=== PATIENT | female | born 1930 | race Caucasian/White ===

== ENCOUNTER 2021-05-08 12:10 | Emergency (ER) | payer MEDICARE, OTHER ==
[2021-05-08] MEDS ORDERED: Lidocaine 1% w/Epinephrine 1:100K 20 ML VIAL ONE (12:45)
== END 2021-05-08 15:23 | disposition home or self-care (01) ==
LOC: CSHERS 12:10
DX: S01.81XA Laceration without foreign body of other part of head, initial encounter (principal); S05.32XA Ocular laceration without prolapse or loss of intraocular tissue, left eye, initial encounter; S80.02XA Contusion of left knee, initial encounter; I48.91 Unspecified atrial fibrillation; E78.5 Hyperlipidemia, unspecified; I10 Essential (primary) hypertension; W19.XXXA Unspecified fall, initial encounter
CPT/HCPCS: 12013; 70450; 70486; 72125

== ENCOUNTER 2021-05-19 10:45 | Inpatient (IN) | payer OTHER, MEDICARE ==
[2021-05-19] MEDS ORDERED: Cefepime 1 GM VIAL ONE (12:17)
[2021-05-19 12:20] LABS: #Basophils 0.1 10x3/uL (0.0-0.2); #Eosinphils 0.1 10x3/uL (0.0-0.5); #Monocytes 1.3 10x3/uL (0.0-1.1); #Neutrophils 10.7 10x3/uL (1.5-8.4); %Basophils 0.8 % (0.0-2.0); %Eosinophils 0.9 % (0.0-6.0); %Lymphocytes 7.8 % (18.0-47.0); %Monocytes 9.5 % (0.0-10.0); %Neutrophils 80.4 % (40.0-75.0); Hemoglobin 10.5 g/dL (12.0-15.5); Mean Corpuscular HGB CONC 31.5 g/dL (32.0-36.0); Mean Corpuscular Hemoglobin 31.8 pg (27.0-33.0); Mean Corpuscular Volume 100.9 fl (81.6-98.3); Mean Platelet Volume 10.2 fl (7.4-10.4); Platelet Count 347 10x3/uL (150-450); White Blood Cell (WBC) Count 13.3 10x3/uL (3.5-10.5)
[2021-05-19 12:24] LABS: Bilirubin Neg (Negative); Blood, Urine 10 (Negative); Clarity Clear (Clear); Glucose, Urine (Dipstick) Normal (Negative); Ketone, Urine Negative (Negative); Leukocyte Negative (Negative); Nitrite Negative (Negative); Protein, Urine (Dipstick) 15 mg/dl (Neg-Trace); Specific Gravity, Urine 1.015 (1.002-1.036)
[2021-05-19 12:37] LABS: Bacteria/HPF Rare-Few HPF (None Seen); Mucous/LPF 1+ LPF (<2+); Squamous Epithelial 0-3 HPF (0-3); WBC/HPF 0-3 HPF (0-3)
[2021-05-19 12:37] LABS: ALT (SGPT) 18 U/L (8-55); AST (SGOT) 29 U/L (5-34); Albumin 3.7 g/dL (3.4-4.8); Alkaline Phosphatase 140 U/L (40-110); Anion Gap 18 mmol/L (10-20); BUN (Urea Nitrogen) 29 mg/dL (9.8-20.1); Bilirubin, Total 1.7 mg/dL (0.2-1.2); Calc. Creatinine Clearance 0 mL/min (70-130); Calcium 9.1 mg/dL (7.8-10.44); Carbon Dioxide 21 mmol/L (23-31); Chloride 104 mmol/L (98-107); Globulin 3.6 g/dL (2.4-3.5); Glucose 116 mg/dL (83-110); Potassium 4.5 mmol/L (3.5-5.1); Protein, Total 7.3 g/dL (5.8-8.1); Sodium 138 mmol/L (136-145)
[2021-05-19 13:53] LABS: SARS-CoV-2 NAA Rapid Test Not Detected (NotDetected)
[2021-05-19] MEDS ORDERED: HYDROcodone/Acetaminophen 5/325 mg Tablet PO PRN (14:11)
[2021-05-19] MEDS ORDERED: Ondansetron PF 4 MG/2 ML Vial IVP PRN (14:11)
[2021-05-19] MEDS ORDERED: traMADol HCl 50 MG TAB PO PRN (14:35)
[2021-05-19] MEDS ORDERED: Ventolin HFA Inhaler 60 PUFF INHALER INH PRN (15:09)
[2021-05-19 16:28] VITALS: BMI 34.1
[2021-05-19] MEDS: Sodium Chloride 0.9% 1,000 ML IV SCH (17:28)
[2021-05-19] MEDS ORDERED: Lidocaine 1% PF 10 ML AMP FS SCH (18:15)
[2021-05-19] MEDS: Famotidine 20 MG TAB PO SCH (20:16)
[2021-05-19] MEDS: Atorvastatin Calcium 10 MG TAB PO SCH (20:16)
[2021-05-19] MEDS: Atenolol 25 MG TAB PO SCH (20:16)
[2021-05-19] MEDS: Escitalopram Oxalate 10 mg Tablet PO SCH (20:17)
[2021-05-19] MEDS: Apixaban 5 MG TAB PO SCH (20:17)
[2021-05-20] MEDS: Acetaminophen 325 MG TAB PO PRN (02:17)
[2021-05-20 04:17] LABS: #Basophils 0.1 10x3/uL (0.0-0.2); #Eosinphils 0.2 10x3/uL (0.0-0.5); #Monocytes 0.9 10x3/uL (0.0-1.1); #Neutrophils 5.8 10x3/uL (1.5-8.4); %Basophils 1.1 % (0.0-2.0); %Eosinophils 2.6 % (0.0-6.0); %Lymphocytes 14.3 % (18.0-47.0); %Monocytes 10.8 % (0.0-10.0); %Neutrophils 70.8 % (40.0-75.0); Mean Corpuscular HGB CONC 32.5 g/dL (32.0-36.0); Mean Corpuscular Hemoglobin 32.3 pg (27.0-33.0); Mean Corpuscular Volume 99.3 fl (81.6-98.3); Mean Platelet Volume 9.8 fl (7.4-10.4); Platelet Count 262 10x3/uL (150-450); RBC Distribution Width 14.3 % (11.5-14.5); Red Blood Cell (RBC) Count 2.79 10x6/uL (3.90-5.03); White Blood Cell (WBC) Count 8.1 10x3/uL (3.5-10.5)
[2021-05-20 04:31] LABS: Anion Gap 11 mmol/L (10-20); BUN (Urea Nitrogen) 28 mg/dL (9.8-20.1); Calc. Creatinine Clearance 52 mL/min (70-130); Calcium 8.1 mg/dL (7.8-10.44); Carbon Dioxide 22 mmol/L (23-31); Chloride 110 mmol/L (98-107); Glucose 108 mg/dL (83-110); Sodium 139 mmol/L (136-145)
[2021-05-20] MEDS: Sodium Chloride 0.9% 1,000 ML IV SCH ×2 (05:52→06:24)
[2021-05-20] MEDS: Amiodarone 200 MG TAB PO SCH (08:18)
[2021-05-20] MEDS: Apixaban 5 MG TAB PO SCH ×2 (08:19→20:21)
[2021-05-20] MEDS: Famotidine 20 MG TAB PO SCH (08:19)
[2021-05-20] MEDS: Furosemide 20 MG TAB PO SCH (08:19)
[2021-05-20] MEDS ORDERED: Methocarbamol 500 MG TAB PO SCH (11:45)
[2021-05-20] MEDS: Atorvastatin Calcium 10 MG TAB PO SCH (20:21)
[2021-05-20] MEDS: Escitalopram Oxalate 10 mg Tablet PO SCH (20:21)
[2021-05-20] MEDS: Atenolol 25 MG TAB PO SCH (20:21)
[2021-05-21] MEDS: Amiodarone 200 MG TAB PO SCH (09:47)
[2021-05-21] MEDS: Apixaban 5 MG TAB PO SCH ×2 (09:47→21:22)
[2021-05-21 09:48] LABS: #Basophils 0.1 10x3/uL (0.0-0.2); #Eosinphils 0.2 10x3/uL (0.0-0.5); #Monocytes 0.9 10x3/uL (0.0-1.1); #Neutrophils 8.4 10x3/uL (1.5-8.4); %Basophils 0.8 % (0.0-2.0); %Eosinophils 1.5 % (0.0-6.0); %Lymphocytes 9.4 % (18.0-47.0); %Monocytes 8.6 % (0.0-10.0); %Neutrophils 79.3 % (40.0-75.0); Hemoglobin 9.5 g/dL (12.0-15.5); Mean Corpuscular HGB CONC 32.1 g/dL (32.0-36.0); Mean Corpuscular Hemoglobin 32.5 pg (27.0-33.0); Mean Corpuscular Volume 101.4 fl (81.6-98.3); Mean Platelet Volume 9.7 fl (7.4-10.4); Platelet Count 271 10x3/uL (150-450); RBC Distribution Width 14.3 % (11.5-14.5); Red Blood Cell (RBC) Count 2.92 10x6/uL (3.90-5.03); White Blood Cell (WBC) Count 10.6 10x3/uL (3.5-10.5)
[2021-05-21] MEDS: Famotidine 20 MG TAB PO SCH (09:49)
[2021-05-21] MEDS: Furosemide 20 MG TAB PO SCH (09:49)
[2021-05-21 10:09] LABS: Anion Gap 13 mmol/L (10-20); BUN (Urea Nitrogen) 24 mg/dL (9.8-20.1); Calc. Creatinine Clearance 54 mL/min (70-130); Calcium 8.6 mg/dL (7.8-10.44); Carbon Dioxide 20 mmol/L (23-31); Chloride 110 mmol/L (98-107); Glucose 148 mg/dL (83-110); Potassium 4.1 mmol/L (3.5-5.1); Sodium 139 mmol/L (136-145)
[2021-05-21] MEDS: Methocarbamol 500 MG TAB PO PRN (15:37)
[2021-05-21] MEDS: Atenolol 25 MG TAB PO SCH (21:21)
[2021-05-21] MEDS: Escitalopram Oxalate 10 mg Tablet PO SCH (21:21)
[2021-05-21] MEDS: Atorvastatin Calcium 10 MG TAB PO SCH (21:22)
[2021-05-22 05:42] LABS: Anion Gap 12 mmol/L (10-20); BUN (Urea Nitrogen) 22 mg/dL (9.8-20.1); Calc. Creatinine Clearance 55 mL/min (70-130); Calcium 8.5 mg/dL (7.8-10.44); Carbon Dioxide 23 mmol/L (23-31); Chloride 108 mmol/L (98-107); Glucose 110 mg/dL (83-110); Potassium 3.9 mmol/L (3.5-5.1); Sodium 139 mmol/L (136-145)
[2021-05-22 06:52] LABS: Hemoglobin 9.3 g/dL (12.0-15.5); Mean Corpuscular HGB CONC 31.6 g/dL (32.0-36.0); Mean Corpuscular Hemoglobin 32.3 pg (27.0-33.0); Mean Corpuscular Volume 102.1 fl (81.6-98.3); Mean Platelet Volume 9.9 fl (7.4-10.4); Platelet Count 275 10x3/uL (150-450); RBC Distribution Width 14.2 % (11.5-14.5); Red Blood Cell (RBC) Count 2.88 10x6/uL (3.90-5.03)
[2021-05-22] MEDS: Amiodarone 200 MG TAB PO SCH ×2 (09:00→11:02)
[2021-05-22] MEDS: Furosemide 20 MG TAB PO SCH (11:02)
[2021-05-22] MEDS: Acetaminophen 325 MG TAB PO PRN (11:02)
[2021-05-22] MEDS: Famotidine 20 MG TAB PO SCH (11:02)
[2021-05-22] MEDS: Apixaban 5 MG TAB PO SCH ×2 (11:02→20:51)
[2021-05-22] MEDS: Atenolol 25 MG TAB PO SCH (20:50)
[2021-05-22] MEDS: Atorvastatin Calcium 10 MG TAB PO SCH (20:51)
[2021-05-22] MEDS: Escitalopram Oxalate 10 mg Tablet PO SCH (20:51)
[2021-05-22] MEDS: Methocarbamol 500 MG TAB PO PRN (20:51)
[2021-05-23] MEDS: Apixaban 5 MG TAB PO SCH (08:58)
[2021-05-23] MEDS: Famotidine 20 MG TAB PO SCH (08:58)
[2021-05-23] MEDS: Furosemide 20 MG TAB PO SCH (08:59)
[2021-05-23 12:01] VITALS: BP 136/63; TEMP 98.3
== END 2021-05-23 14:00 | disposition home health service (06) | DRG 872 ==
LOC: CSHERS 10:45 → CSHTELE 14:08
PROVIDERS: ADMIT Internal Medicine; ATTEND Internal Medicine
PROC: 0S9D3ZZ Drainage of Left Knee Joint, Percutaneous Approach (ICD-10-PCS; principal; 2021-05-19)
PROC: 8E09XY8 Suture Removal from Head and Neck Region (ICD-10-PCS; 2021-05-19)
DX: A41.9 Sepsis, unspecified organism (principal); L03.116 Cellulitis of left lower limb; E87.2 Acidosis; I50.32 Chronic diastolic (congestive) heart failure; I13.0 Hypertensive heart and chronic kidney disease with heart failure and stage 1 through stage 4 chronic kidney disease, or unspecified chronic kidney disease; Z20.822 Contact with and (suspected) exposure to COVID-19; I48.0 Paroxysmal atrial fibrillation; I25.10 Atherosclerotic heart disease of native coronary artery without angina pectoris; M70.40 Prepatellar bursitis, unspecified knee; S00.83XA Contusion of other part of head, initial encounter; G47.33 Obstructive sleep apnea (adult) (pediatric); E78.5 Hyperlipidemia, unspecified; W01.0XXA Fall on same level from slipping, tripping and stumbling without subsequent striking against object, initial encounter; J45.909 Unspecified asthma, uncomplicated; N18.30 Chronic kidney disease, stage 3 unspecified; Z99.81 Dependence on supplemental oxygen; Z79.01 Long term (current) use of anticoagulants; Z79.82 Long term (current) use of aspirin; Z79.899 Other long term (current) drug therapy; Z95.0 Presence of cardiac pacemaker; Y92.009 Unspecified place in unspecified non-institutional (private) residence as the place of occurrence of the external cause
CPT/HCPCS: 36415; 36416; 70450; 71045; 72125; 72170; 80048; 80053; 81003; 81015; 83605; 85025; 85027; 85652; 86140; 87040; 87070; 87205; 93005; 93010; 94760; 96374; 96375; J0692; J2001; J3370; J7050; U0002